=== PATIENT | male | born 1985 | race Two or more races ===

== ENCOUNTER → 2024-11-12 | Outpatient (CLI) | payer BC, SELFPAY ==
--- NOTE | 2024-11-12 13:59 | XR_ITS ---
EXAMINATION: Abdomen, left-sided down decubitus, upright 2 views. Technique: Abdomen AP upright, left side down decubitus 2 views Date and time of exam: November 12, 2024 1416 hours INDICATIONS: Left lower abdomen pain this week FINDINGS: Moderate stool throughout the colon No obstruction No free air IMPRESSION: Moderate stool throughout the colon No obstruction
[2024-11-12 15:23] LABS: Collection Type, Urine Clean Catch; Squamous Epithelial Cell,Urine 0 /hpf (0-5)
[2024-11-12 16:29] LABS: Basophils % (Auto) 0 % (0-2.5); Eosinophils # (Auto) 0.1 Thou/mm3 (0.0-0.5); Eosinophils % (Auto) 2 % (0-10); Hematocrit 51.3 % (41.0-53.0); Hemoglobin 17.7 g/dL (13.5-16.0); Immature Granulocytes % (Auto) 1 % (0-0); Immature Granulocytes Auto 0.03 Thou/mm3 (0.00-0.00); Lymphocytes % (Auto) 32 % (10-50); Mean Corpuscular HGB Conc 34.5 g/dl (31.0-37.0); Mean Corpuscular Hemoglobin 29.7 pg (25.0-35.0); Mean Corpuscular Volume 86 fL (80-100); Monocytes # (Auto) 0.5 Thou/mm3 (0.0-0.8); Monocytes % (Auto) 7 % (0-12); Neutrophils # (Auto) 3.7 Thou/mm3 (1.8-7.7); Neutrophils % (Auto) 59 % (37-80); Nucleated Red Blood Cell % 0 /100 WBC (0); Platelet Count 204 Thou/mm3 (140-440); RDW Standard Deviation 41.5 fL (35.1-43.9); Red Blood Count 5.95 Miln/mm3 (4.50-5.90); White Blood Count 6.3 Thou/mm3 (3.8-10.6)
[2024-11-12 16:37] LABS: Bilirubin,Urine Negative (Negative); Blood,Urine Negative (Negative); Clarity,Urine Clear (Clear/Hazy); Color,Urine Lt-Yellow (Lt Yel-Yel); Glucose, Urine Negative (Negative); Ketones,Urine Negative (Negative); Leukocyte Esterase,Urine Negative (Negative); Nitrite,Urine Negative (Negative); PH,Urine 6.5 (5.0-7.0); Protein,Urine Negative (Neg - Trace); RBC,Urine 5 /hpf (0-3); Urobilinogen,Urine Negative mg/dL (0.0-1.0); WBC,Urine < 1 /hpf (0-5)
[2024-11-12 16:54] LABS: Alanine Aminotransferase 36 U/L (10-49); Albumin, Serum 4.4 gm/dL (3.5-5.0); Albumin/Globulin Ratio 1.8 (1.2-2.2); Alkaline Phosphatase 62 U/L (46-116); Anion Gap 10 (7-16); Aspartate Amino Transferase 26 U/L (0-34); BUN/Creatinine Ratio 18 Ratio (12-20); Bilirubin,Total 1.1 mg/dL (0.3-1.2); Blood Urea Nitrogen 20 mg/dL (9-23); Calcium 8.8 mg/dL (8.3-10.6); Calcium (Corrected) 8.8 mg/dL (8.5-10.1); Carbon Dioxide 26.6 mMol/L (20.0-31.0); Cardiac Risk Estimate 4.5 RATIO (4.0-6.7); Chloride 107 mMol/L (98-107); Cholesterol 187 mg/dL (132-200); Creatinine (Component) 1.1 mg/dL (0.6-1.3); Globulin 2.4 gm/dL (2.3-3.5); Glucose 84 mg/dL (74-106); HDL Cholesterol 42 mg/dL (40-60); LDL Cholesterol,Calculated 128 mg/dL (0-130); Osmolality,Calculated 288 (275-295); Potassium 4.3 mMol/L (3.4-5.1); Sodium 144 mMol/L (136-145); Thyroid Stimulating Hormone 1.24 uIU/mL (0.55-4.78); Total Protein 6.8 gm/dL (5.7-8.2); Triglycerides 86 mg/dL (30-150); Vitamin D 25 Hydroxy Total 25.2 ng/mL (7.3-40.2); eGFR > 60 See Note
[2024-11-12 16:58] LABS: Creatinine MALB Rnd Ur 184 mg/dL (30-125); Microalbumin, Random Urine < 3 mg/L (0-300)
== END | disposition home or self-care (01) ==
LOC: CDIM 13:26 → COPL 14:33
PROVIDERS: PCP Family Medicine; Referring Provider Family Medicine; Visit Provider Radiology Diagnostic Radiology
DX: K59.00 Constipation, unspecified (principal); Z00.00 Encounter for general adult medical examination without abnormal findings; I10 Essential (primary) hypertension; F52.21 Male erectile disorder; Z13.0 Encounter for screening for diseases of the blood and blood-forming organs and certain disorders involving the immune mechanism; Z13.1 Encounter for screening for diabetes mellitus; Z13.21 Encounter for screening for nutritional disorder; Z13.220 Encounter for screening for lipoid disorders; Z13.29 Encounter for screening for other suspected endocrine disorder
CPT/HCPCS: 36415; 74018; 80053; 80061; 81001; 82043; 82306; 82570; 84402; 84403; 84443; 85025; 87086

== ENCOUNTER 2025-01-18 01:32 | Emergency (ER) | payer BC, SELFPAY ==
[2025-01-18] VITALS (7 sets, daily range): BP systolic 104–174; BP diastolic 55–122; PULSE 88–120; RESP 17–22; TEMP 36.6–37.2; O2SAT 95–100; BMI 33.4
--- NOTE | 2025-01-18 01:54 | PD.EDRME ---
Rapid Medical Screening Exam RME Arrival date/time: 01/18/25 01:32 Chief Complaint: General Adult/Misc Complain Time Seen by Provider: 01/18/25 01:42 Vital signs: Vital Signs Temperature 97.8 F 01/18/25 01:51 Pulse Rate 120 H 01/18/25 01:51 Respiratory Rate 22 H 01/18/25 01:51 Blood Pressure 174/122 H 01/18/25 01:51 Pulse Oximetry (%) 95 01/18/25 01:51 Oxygen Delivery Method Room Air 01/18/25 01:51 Vital signs reviewed by provider: Yes RME Narrative: 39-year-old male presents to the ED with a complaint of severe nausea and vomiting, shaking, and feeling very ill. He indicates he drank an entire bottle of THC, 100 mg. I have greeted and performed a focused initial assessment of this patient. A comprehensive ED assessment and evaluation of the patient, analysis of all test results, and completion of the medical decision making process will be conducted by additional ED providers.
--- NOTE | 2025-01-18 02:15 | PD.EDNV ---
Nausea/Vomit./Diarrhea-RME/HPI General Chief complaint: General Adult/Misc Complain Stated complaint: DIZINESS,HEADACHE,WEAK AFTER DRINKING THC LIQUD Time Seen by Provider: 01/18/25 01:42 Arrival date/time: 01/18/25 01:32 RME / HPI RME / HPI Narrative: 39-year-old male presents to the ED with a complaint of severe nausea and vomiting, shaking, and feeling very ill. He indicates he drank an entire bottle of THC, 100 mg. I have greeted and performed a focused initial assessment of this patient. A comprehensive ED assessment and evaluation of the patient, analysis of all test results, and completion of the medical decision making process will be conducted by additional ED providers. --------- Dr. Andujar?wale Main ED Evaluation: 39yo male presenting with sudden onset nausea, vomiting, and epigastric pain with associated tremors after having drank 12oz beverage containing 100mg THC. No reported co-ingestants. Patient reports dysphoria, several bouts of nonbloody emesis, but denies diarrhea. No fever or underlying illness. PSH and PMH unremarkable. Related Data Allergies Allergy/AdvReac Type Severity Reaction Status Date / Time No Known Allergies Allergy Verified 01/18/25 01:35 Review of Systems Review of Systems Systems Reviewed: All systems reviewed, normal except as documented ED Exam Narrative Physical exam: GENERAL APPEARANCE: alert and oriented x 4, pale, diaphoretic, actively retching, notably tachycardic VITALS: All vitals were reviewed and the pulse ox is 95% on room air, which is normal according to my interpretation. Hypertensive and tachycardic. HEENT: Normocephalic, atraumatic; pupils equal, round, reactive to light; EOMI; mucous membranes pink, moist; oropharynx clear NECK: Supple LUNGS: CTABL; no wheezes, no rales, no rhonchi HEART: Tachycardic, regular rhythm; normal S1, S2; no murmurs ABDOMEN: non distended; normal BS; soft, mild mid epigastric tenderness, no peritoneal findings BACK: no CVA tenderness EXTREMITIES: atraumatic; no edema NEUROLOGIC: awake; alert and oriented x4; cranial nerves II-XII grossly intact; no focal sensory or motor deficits; mild tremor PSYCHIATRIC: appropriate mood and affect SKIN: warm, diaphoretic, pale; no rashes Course Quality Measures none Orders Category Date Time Status EKG (ED ONLY) *Do not use* NOW Care 01/18/25 04:55 Completed IV [Insert IV] NOW Care 01/18/25 01:57 Active EKG (ED Only) Stat Exams 01/18/25 04:55 Draft BNP [B-Type Natriuretic Peptide] Stat Lab 01/18/25 02:29 Completed CBC Stat Lab 01/18/25 02:29 Completed CK [Creatine Kinase] Stat Lab 01/18/25 02:29 Completed CMP [Comprehensive Metabolic Panel] Stat Lab 01/18/25 02:29 Completed Drug Screen,Urine Stat Lab 01/18/25 05:11 Received Lactic Acid [Lactate (Lactic Acid)] Stat Lab 01/18/25 02:29 Completed Lactic Acid, 3 HR Stat Lab 01/18/25 05:43 Ordered TSH [Thyroid Stimulating Hormone] Stat Lab 01/18/25 05:20 Received Troponin I Stat Lab 01/18/25 02:29 Completed Troponin I Stat Lab 01/18/25 05:20 Received Urinalysis, C/S if Indicated Stat Lab 01/18/25 05:11 Received Diazepam Inj [Valium Inj] Med 01/18/25 02:24 Discontinued 2.5 mg IVP X1 ONE Diazepam Inj [Valium Inj] Med 01/18/25 04:55 Discontinued 2.5 mg IVP X1 ONE Haloperidol Lactate [Haldol Inj] Med 01/18/25 01:57 Discontinued 2 mg IM X1 ONE POTASSIUM CHL 10 mEq IVPB [Kcl Ivpb] Med 01/18/25 05:07 Active 10 meq in 100 ml IV Q1H Sodium Chloride 0.9% 1000 ml [Ns] 1,000 ml Med 01/18/25 01:56 Discontinued IV 999 mls/hr Sodium Chloride 0.9% 1000 ml [Ns] 1,000 ml Med 01/18/25 01:57 Discontinued IV 999 mls/hr Sodium Chloride 0.9% 1000 ml [Ns] 1,000 ml Med 01/18/25 04:42 Discontinued IV 999 mls/hr Vital Signs Vital signs: Vital Signs Temperature 97.8 F 01/18/25 01:51 Pulse Rate 120 H 01/18/25 01:51 Respiratory Rate 22 H 01/18/25 01:51 Blood Pressure 174/122 H 01/18/25 01:51 Pulse Oximetry (%) 95 01/18/25 01:51 Oxygen Delivery Method Room Air 01/18/25 01:51 Nausea/Vomiting/Diarrhea [facility] Narrative [facility] Narrative:: Scribe Attestation: 01/18/25 Erlinda Christine am scribing for and in the presence of Dr. Andujar. 39yo male presenting with sudden onset nausea, vomiting, and epigastric pain with associated tremors after having drank 12oz beverage containing 100mg THC. No reported co-ingestants. Please see PE findings. Lab markers show marginally elevated WBC count 11.8, hemoconcentration with Hgb 17.9, no left shift or bandemia. Chemistries show slightly low potassium 3.3, elevated lactic acid 4.1, troponin undetected, and total CK elevated at 258. Patient placed on monitoring specialist and was notably hypertensive and tachycardic. Patient treated with aggressive fluid hydration and incremental doses of benzodiazepines with improvement of vital signs and overall clinical improvement. Patient continues to complain of chest discomfort and nausea. Pending repeat troponin and lactate. TSH will be obtained. Tox screen pending. Will endorse case to AM physician for final disposition. Signout Dx: substance abuse, THC ingestion, hypertensive episode, hypokalemia Patient data External records reviewed:: [facility] previous records (Per chart review, patient has no previous ED visits or admissions to this facility.) Clinical information provided by:: patient Social determinants that could affect healthcare access:: substance use Patient has the following chronic illnesses:: none How is presenting disease/condition affected by chronic disease/condition?: no chronic disease Evaluation data The following diagnostics were reviewed and interpreted by me:: lab results and EKG tracing(s) (done at 0503, NSR, rate of 92, no acute ST segment changes, leftward axis, normal intervals, no ectopy, according to my interpretation.) Lab and/or radiology exams considered but not ordered:: none Interpretation Summary: See MDM narrative. Medications / Prescriptions Medications / Prescriptions considered but not ordered:: none Medication administrations:: Medication Administration History Potassium Chloride (Kcl Ivpb) 10 meq in 100 mls @ 100 mls/hr IV Q1H DION Stop: 01/18/25 07:06 Last Admin: 01/18/25 05:57 Dose: 100 mls/hr Documented By: AM Discontinued Medications Diazepam (Diazepam Inj 5 Mg/Ml Vial 2 Ml) 2.5 mg IVP X1 ONE Stop: 01/18/25 02:25 Last Admin: 01/18/25 02:57 Dose: 2.5 mg Documented By: AM Diazepam (Diazepam Inj 5 Mg/Ml Vial 2 Ml) 2.5 mg IVP X1 ONE Stop: 01/18/25 04:56 Last Admin: 01/18/25 05:21 Dose: 2.5 mg Documented By: AM Haloperidol Lactate (Haloperidol Lact Inj 5 Mg/Ml Vial) 2 mg IM X1 ONE Stop: 01/18/25 01:58 Sodium Chloride (Ns) 1,000 mls @ 999 mls/hr IV .Q1H1M ONE Stop: 01/18/25 02:56 Last Infusion: 01/18/25 03:59 Dose: Infused Documented By: Admin: 01/18/25 02:49 Dose: 999 mls/hr Documented By: AM Sodium Chloride (Ns) 1,000 mls @ 999 mls/hr IV .Q1H1M ONE Stop: 01/18/25 02:57 Last Infusion: 01/18/25 04:43 Dose: Infused Documented By: Admin: 01/18/25 02:50 Dose: 999 mls/hr Documented By: AM Sodium Chloride (Ns) 1,000 mls @ 999 mls/hr IV .Q1H1M ONE Stop: 01/18/25 05:42 Last Admin: 01/18/25 04:48 Dose: 999 mls/hr Documented By: AM see above Consultations Consultation(s) initiated? (list below): No Diagnosis Nausea Differential Diagnosis: drug-induced nausea and vomiting, dehydration and other (electrolyte abnormality) Most likely diagnosis given after review of the tests above:: substance abuse, THC ingestion, hypertensive episode, hypokalemia Admission Indicated Admission indicated?: not indicated Admission Request Was there a request for admission?: No Disposition Plan Disposition Plan: other (specify) (Signed out to Dr. Sanchez at 6 AM.) Discharge Plan Prescriptions/Referrals Referrals: Luis (PCP)Frank MD [Primary Care Provider] - In 1 week Problem List Clinical Impression: Substance abuse, Marijuana use, Single episode of hypertension, Hypokalemia Patient/Caregiver Discharge Instructions Print Language: Belarusian
[2025-01-18 02:47] LABS: Basophils # (Auto) 0.1 Thou/mm3 (0.0-0.2); Basophils % (Auto) 0 % (0-2.5); Eosinophils # (Auto) 0.2 Thou/mm3 (0.0-0.5); Eosinophils % (Auto) 2 % (0-10); Hematocrit 51.1 % (41.0-53.0); Hemoglobin 17.9 g/dL (13.5-16.0); Immature Granulocytes Auto 0.09 Thou/mm3 (0.00-0.00); Lymphocytes # (Auto) 3.5 Thou/mm3 (1.0-4.8); Lymphocytes % (Auto) 30 % (10-50); Mean Corpuscular HGB Conc 35.0 g/dl (31.0-37.0); Mean Corpuscular Hemoglobin 30.7 pg (25.0-35.0); Mean Corpuscular Volume 88 fL (80-100); Monocytes # (Auto) 0.7 Thou/mm3 (0.0-0.8); Monocytes % (Auto) 6 % (0-12); Neutrophils # (Auto) 7.2 Thou/mm3 (1.8-7.7); Neutrophils % (Auto) 61 % (37-80); Nucleated Red Blood Cell # 0.00 Thou/mm3 (0.00-0.00); Nucleated Red Blood Cell % 0 /100 WBC (0); Platelet Count 223 Thou/mm3 (140-440); RDW Standard Deviation 41.1 fL (35.1-43.9); Red Blood Count 5.84 Miln/mm3 (4.50-5.90); White Blood Count 11.8 Thou/mm3 (3.8-10.6)
[2025-01-18 02:49] LABS: Lactate (Lactic Acid) 4.1 mMol/L (0.4-2.0)
[2025-01-18] MEDS: SODIUM CHLORIDE 0.9% 1000 ML 1,000 ML 999 ML IV ×3 (02:49→04:48)
[2025-01-18] MEDS: DIAZEPAM INJ 5 MG/ML VIAL 2 ML 2.5 MG IVP ×2 (02:57→05:21)
[2025-01-18 03:21] LABS: Alanine Aminotransferase 28 U/L (10-49); Albumin, Serum 4.4 gm/dL (3.5-5.0); Albumin/Globulin Ratio 1.8 (1.2-2.2); Alkaline Phosphatase 71 U/L (46-116); Anion Gap 12 (7-16); Aspartate Amino Transferase 23 U/L (0-34); BUN/Creatinine Ratio 11 Ratio (12-20); Bilirubin,Total 0.6 mg/dL (0.3-1.2); Blood Urea Nitrogen 14 mg/dL (9-23); Calcium 8.9 mg/dL (8.3-10.6); Calcium (Corrected) 8.9 mg/dL (8.5-10.1); Carbon Dioxide 21.0 mMol/L (20.0-31.0); Chloride 106 mMol/L (98-107); Creatine Kinase 258 U/L (34-171); Creatinine (Component) 1.3 mg/dL (0.6-1.3); Globulin 2.4 gm/dL (2.3-3.5); Glucose 157 mg/dL (74-106); Osmolality,Calculated 281 (275-295); Potassium 3.3 mMol/L (3.4-5.1); Sodium 139 mMol/L (136-145); Total Protein 6.8 gm/dL (5.7-8.2); Troponin I < 0.020 ng/mL (0.0-0.045); eGFR > 60 See Note
[2025-01-18 03:24] LABS: B-Type Natriuretic Peptide < 20 pg/mL (0-100)
--- NOTE | 2025-01-18 04:55 | EKG_ITS ---
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
[2025-01-18 05:43] LABS: Reflex Lactate? Y
[2025-01-18] MEDS: POTASSIUM CHL 10 mEq IVPB 10 MEQ/100 ML BAG 100 MEQ IV ×2 (05:57→07:17)
[2025-01-18 06:05] LABS: Collection Type, Urine Clean Catch
--- NOTE | 2025-01-18 06:10 | XR_ITS ---
Examination: AP chest single view Technique one AP portable upright chest single view Date and time: January 18, 2025 0613 hours Comparison March 21, 2017 INDICATIONS: Sudden onset nausea vomiting epigastric pain chest pain today. FINDINGS: Mild opacity left base Mild prominence cardiac contour Mild vascular congestion. Intact osseous structures IMPRESSION: Suspicious for early pneumonia left base, consider aspiration pneumonia
[2025-01-18 06:18] LABS: Amphetamine/Methamp Scrn,U Negative (Negative); Barbiturate Screen,Urine Negative (Negative); Benzodiazepines Screen,Urine Positive (Negative); Benzoylecgonine Screen, Ur Negative (Negative); Fentanyl Screen,Urine Negative (Negative); Opiate Screen,Urine Negative (Negative); THC Screen,Urine Positive (Negative)
[2025-01-18 06:31] LABS: Thyroid Stimulating Hormone 0.56 uIU/mL (0.55-4.78); Troponin I < 0.020 ng/mL (0.0-0.045)
[2025-01-18 06:47] LABS: Bilirubin,Urine Negative (Negative); Blood,Urine Trace (Negative); Clarity,Urine Clear (Clear/Hazy); Color,Urine Yellow (Lt Yel-Yel); Culture Indicated,Urine Not Indicated; Glucose, Urine Trace (Negative); Ketones,Urine Trace (Negative); Leukocyte Esterase,Urine Negative (Negative); Nitrite,Urine Negative (Negative); PH,Urine 5.5 (5.0-7.0); Protein,Urine 1+ (Neg - Trace); RBC,Urine 4 /hpf (0-3); Specific Gravity,Urine 1.035 (1.001-1.035); Squamous Epithelial Cell,Urine < 1 /hpf (0-5); Urobilinogen,Urine 2.0 mg/dL (0.0-1.0); WBC,Urine 2 /hpf (0-5)
[2025-01-18 07:17] LABS: Lactic Acid, 3 HR 1.8 mMol/L (0.4-2.0)
[2025-01-18] MEDS: AMPICILLIN/SULBAC INJ 3 GM in SODIUM CHLORIDE 0.9% (POP) 100 ML IV (08:54)
== END 2025-01-18 09:52 | disposition home or self-care (01) ==
PROVIDERS: Physician Assistant; Emergency Provider Emergency Medicine; PCP Family Medicine
DX: F12.10 Cannabis abuse, uncomplicated (principal); E87.6 Hypokalemia; I10 Essential (primary) hypertension; R07.89 Other chest pain; D72.829 Elevated white blood cell count, unspecified; R00.0 Tachycardia, unspecified; R11.2 Nausea with vomiting, unspecified
CPT/HCPCS: 36415; 71045; 80053; 80307; 81001; 82550; 83605; 83880; 84443; 84484; 85025; 93005; 96361; 96365; 96366; 96375; 96376; 99284; J0295; J3360; J3480; J7030